=== PATIENT | female | born 1950 | race African-American/Black ===

== ENCOUNTER 2020-05-12 15:25 | Inpatient (IN) | payer OTHER ==
[~2020-05-12] VITALS: Ht 162.6 cm; Wt 67.6 kg
--- NOTE | 2020-05-12 15:58 | Emergency Room Report ---
History of Present Illness General Chief Complaint: General Complaint Source: Patient Present Illness HPI Patient is a 69-year-old female past medical history of uterine cancer, diabetes and hypertension who presents to the ER complaining of left lower leg pain and swelling. She cannot clearly explain when it started. Patient went to her oncologist who referred her to the emergency room. Patient denies any specific chest pain or shortness of breath but states that she has pain all over. She denies any fever or chills. Allergies: Coded Allergies: IBUPROFEN (Verified Allergy, Unknown, 05/12/20) COVID-19 Screening Contact w/high risk pt: No Experienced COVID-19 symptoms?: No COVID-19 Testing performed MEDICAL VOUCHER CLERK: No Patient History Reviewed Nursing Documentation: PMH: Agreed; PSxH: Agreed Nursing Documentation-PMH Past Medical History: No History, Except For Hx Hypertension: Yes Hx Diabetes: Yes Review of Systems All Other Systems: negative except mentioned in HPI Physical Exam Vital Signs Date Time Temp Pulse Resp B/P (MAP) Pulse Ox O2 Delivery O2 Flow Rate FiO2 05/12/20 15:35 97.3 108 17 112/80 (91) 96 Room Air Sp02 EP Interpretation: reviewed, normal General Appearance: no apparent distress, alert, non-toxic Head: normocephalic, atraumatic Eyes: bilateral eye normal inspection, bilateral eye PERRL ENT: hearing grossly normal, normal pharynx, no angioedema, normal voice Neck: full range of motion, supple/symm/no masses Respiratory: other - Mildly tachypneic Cardiovascular #1: regular rate, rhythm Gastrointestinal: non tender, soft Rectal: deferred Musculoskeletal: other - Left lower extremity diffuse swelling and tenderness to palpation Neurologic: safety investigator/cause analyst III-XII nml as tested Psychiatric: no suicidal/homicidal ideation Skin: pallor Lymphatic: no adenopathy Procedures Critical Care Time Critical Care Time Total critical care time: Approximately 35 minutes. Due to a high probability of clinically significant, life threatening deterioration, the patient required my highest level of preparedness to intervene emergently and I personally spent this critical care time directly and personally managing the patient. This critical care time included obtaining a history; examining the patient; pulse oximetry; ordering and review of studies; arranging urgent treatment with development of a management plan; evaluation of patient's response to treatment; frequent reassessment; and, discussions with other providers.This critical care time was performed to assess and manage the high probability of imminent, life- threatening deterioration that could result in multi-organ failure. It was exclusive of separately billable procedures and treating other patients and teaching time. Please see MDM section and the rest of the note for further information on patient assessment and treatment. Medical Decision Making Diagnostic Impression: Primary Impression: Pulmonary embolism Additional Impressions: DVT (deep venous thrombosis) Pneumonia ER Course Patient initially found to have DVT of the left lower extremity. Patient's creatinine was normal and was started on Lovenox. I sent the patient for CTA to rule out PE. Patient does have a right pulmonary embolus with mild right heart strain. Patient has leukocytosis and CT demonstrates evidence for pneumonia. Patient cultured and started on vancomycin as well as cefepime. I spoke with the patient's doctor who is requesting Dr. Guzman for admission. I spoke with DR. Guzman for admission. Laboratory Tests Test 05/12/20 15:55 05/12/20 18:00 05/12/20 18:15 White Blood Count 13.7 K/UL (4.8-10.8) H Red Blood Count 2.96 M/UL (4.20-5.40) L Hemoglobin 7.1 G/DL (12.0-16.0) L Hematocrit 24.4 % (37.0-47.0) L Mean Corpuscular Volume 83 FL (80-99) Mean Corpuscular Hemoglobin 24.0 PG (27.0-31.0) L Mean Corpuscular Hemoglobin Concent 29.1 G/DL (32.0-36.0) L Red Cell Distribution Width 19.2 % (11.6-14.8) H Platelet Count 227 K/UL (150-450) Mean Platelet Volume 8.0 FL (6.5-10.1) Neutrophils (%) (Auto) % (45.0-75.0) Lymphocytes (%) (Auto) % (20.0-45.0) Monocytes (%) (Auto) % (1.0-10.0) Eosinophils (%) (Auto) % (0.0-3.0) Basophils (%) (Auto) % (0.0-2.0) Neutrophils % (Manual) Pending Lymphocytes % (Manual) Pending Platelet Estimate Pending Platelet Morphology Pending Prothrombin Time 16.8 SEC (9.30-11.50) H Prothrombin Time INR 1.6 (0.9-1.1) H Activated Partial Thromboplast Time 34 SEC (23-33) H Sodium Level 137 MMOL/L (136-145) Potassium Level 3.7 MMOL/L (3.5-5.1) Chloride Level 101 MMOL/L (98-107) Carbon Dioxide Level 25 MMOL/L (21-32) Anion Gap 11 mmol/L (5-15) Blood Urea Nitrogen 12 mg/dL (7-18) Creatinine 0.7 MG/DL (0.55-1.30) Estimated Glomerular Filtration Rate > 60 mL/min (>60) Glucose Level 130 MG/DL (74-106) H Calcium Level 8.5 MG/DL (8.5-10.1) Magnesium Level 2.0 MG/DL (1.8-2.4) Total Bilirubin 0.7 MG/DL (0.2-1.0) Aspartate Amino Transferase (AST) 32 U/L (15-37) Alanine Aminotransferase (ALT) 14 U/L (12-78) Alkaline Phosphatase 166 U/L (46-116) H Troponin I 0.000 ng/mL (0.000-0.056) Pro-B-Type Natriuretic Peptide 2874 pg/mL (0-125) H Total Protein 8.0 G/DL (6.4-8.2) Albumin 1.0 G/DL (3.4-5.0) L Globulin 7.0 g/dL Albumin/Globulin Ratio 0.1 (1.0-2.7) L Lactic Acid Level 2.10 mmol/L (0.4-2.0) H Urine Color Pending Urine Appearance Pending Urine pH Pending Urine Specific Rigby Pending Urine Protein Pending Urine Glucose (UA) Pending Urine Ketones Pending Urine Blood Pending Urine Nitrite Pending Urine Bilirubin Pending Urine Urobilinogen Pending Urine Leukocyte Esterase Pending Microbiology Date/Time Source Procedure Growth Status 05/12/20 17:10 Nasopharynx SARS-CoV-2 RdRp Gene Assay - Final Complete EKG Diagnostic Results Troponin ordered: Yes When was troponin ordered?: May 12, 2020 EKG Time: 16:53 EP Interpretation: Rosemary Bridges MD Rate: normal - 95 bpm Rhythm: NSR ST Segments: no acute changes ASA given to the pt in ED: No Rhythm Strip Diag. Results Rhythm Strip Time: 17:01 EP Interpretation: yes - Rosemary Bridges MD Rate: 95 bpm Rhythm: NSR, no PVC's, no ectopy Chest X-Ray Diagnostic Results Chest X-Ray Diagnostic Results : Chest X-Ray Ordered: Yes # of Views/Limited/Complete: 1 View Indication: Shortness of Breath EP Interpretation: Yes Interpretation: no consolidation, no effusion, no pneumothorax, other - Cardiomegaly Impression: Other - Cardiomegaly Electronically Signed by: Rosemary Bridges MD Last Vital Signs Date Time Temp Pulse Resp B/P (MAP) Pulse Ox O2 Delivery O2 Flow Rate FiO2 05/12/20 15:35 97.3 108 17 112/80 (91) 96 Room Air Disposition: ADMITTED INPATIENT - Telemetry Condition: Critical Physician Consult: Dr. Parsons from insurance agreed to have patient admitted here. Additional Instructions: Please note that this report is being documented using [employer] technology. This can lead to erroneous entry secondary to incorrect interpretation by the dictating instrument. Sepsis Event Note Evaluation Current Stage of Sepsis: Sepsis Possible Source: Pulmonary Focused Exam Allergies: Coded Allergies: IBUPROFEN (Verified Allergy, Unknown, 05/12/20) Date Exam Occurred: May 12, 2020 Time Exam Occurred: 19:54 Laboratory Studies Laboratory Tests Test 05/12/20 15:55 05/12/20 18:00 05/12/20 18:15 White Blood Count 13.7 K/UL (4.8-10.8) H Red Blood Count 2.96 M/UL (4.20-5.40) L Hemoglobin 7.1 G/DL (12.0-16.0) L Hematocrit 24.4 % (37.0-47.0) L Mean Corpuscular Volume 83 FL (80-99) Mean Corpuscular Hemoglobin 24.0 PG (27.0-31.0) L Mean Corpuscular Hemoglobin Concent 29.1 G/DL (32.0-36.0) L Red Cell Distribution Width 19.2 % (11.6-14.8) H Platelet Count 227 K/UL (150-450) Mean Platelet Volume 8.0 FL (6.5-10.1) Neutrophils (%) (Auto) % (45.0-75.0) Lymphocytes (%) (Auto) % (20.0-45.0) Monocytes (%) (Auto) % (1.0-10.0) Eosinophils (%) (Auto) % (0.0-3.0) Basophils (%) (Auto) % (0.0-2.0) Neutrophils % (Manual) Pending Lymphocytes % (Manual) Pending Platelet Estimate Pending Platelet Morphology Pending Prothrombin Time 16.8 SEC (9.30-11.50) H Prothromb Time International Ratio 1.6 (0.9-1.1) H Activated Partial Thromboplast Time 34 SEC (23-33) H Sodium Level 137 MMOL/L (136-145) Potassium Level 3.7 MMOL/L (3.5-5.1) Chloride Level 101 MMOL/L (98-107) Carbon Dioxide Level 25 MMOL/L (21-32) Anion Gap 11 mmol/L (5-15) Blood Urea Nitrogen 12 mg/dL (7-18) Creatinine 0.7 MG/DL (0.55-1.30) Estimat Glomerular Filtration Rate > 60 mL/min (>60) Glucose Level 130 MG/DL (74-106) H Calcium Level 8.5 MG/DL (8.5-10.1) Magnesium Level 2.0 MG/DL (1.8-2.4) Total Bilirubin 0.7 MG/DL (0.2-1.0) Aspartate Amino Transf (AST/SGOT) 32 U/L (15-37) Alanine Aminotransferase (ALT/SGPT) 14 U/L (12-78) Alkaline Phosphatase 166 U/L (46-116) H Troponin I 0.000 ng/mL (0.000-0.056) Pro-B-Type Natriuretic Peptide 2874 pg/mL (0-125) H Total Protein 8.0 G/DL (6.4-8.2) Albumin 1.0 G/DL (3.4-5.0) L Globulin 7.0 g/dL Albumin/Globulin Ratio 0.1 (1.0-2.7) L Lactic Acid Level 2.10 mmol/L (0.4-2.0) H Urine Color Pending Urine Appearance Pending Urine pH Pending Urine Specific Rigby Pending Urine Protein Pending Urine Glucose (UA) Pending Urine Ketones Pending Urine Blood Pending Urine Nitrite Pending Urine Bilirubin Pending Urine Urobilinogen Pending Urine Leukocyte Esterase Pending Vital Signs Last 24 Hour Vital Signs Date Time Temp Pulse Resp B/P (MAP) Pulse Ox O2 Delivery O2 Flow Rate FiO2 05/12/20 19:24 97.3 05/12/20 19:22 97.3 103 17 96/75 97 Room Air 05/12/20 16:29 108 17 Room Air 05/12/20 16:29 97.3 108 17 112/80 96 Room Air 05/12/20 15:35 97.3 108 17 112/80 (91) 96 Room Air Respiratory Exam: Rhonchi Cardiovascular Exam: RRR Capillary Refill: Less Than 2 Seconds Peripheral Pulse: Rosemary Regan M.D. May 12, 2020 15:58
[2020-05-12 16:22] LABS: INR 1.6 (0.9-1.1)
[2020-05-12 16:24] LABS: HEMATOCRIT 24.4 % (37.0-47.0); HEMOGLOBIN 7.1 G/DL (12.0-16.0); MEAN CORPUSCULAR VOLUME 83 FL (80-99); PLATELET COUNT 227 K/UL (150-450); RED BLOOD COUNT 2.96 M/UL (4.20-5.40); RED CELL DISTRIBUTION WIDTH 19.2 % (11.6-14.8); WHITE BLOOD COUNT 13.7 K/UL (4.8-10.8)
[2020-05-12 16:28] LABS: ANION GAP 11 mmol/L (5-15); BLOOD UREA NITROGEN 12 mg/dL (7-18); CALCIUM 8.5 MG/DL (8.5-10.1); CARBON DIOXIDE 25 MMOL/L (21-32); CHLORIDE 101 MMOL/L (98-107); CREATININE 0.7 MG/DL (0.55-1.30); POTASSIUM 3.7 MMOL/L (3.5-5.1); SODIUM 137 MMOL/L (136-145)
[2020-05-12 16:29] VITALS: BP 112/80
--- NOTE | 2020-05-12 16:31 | NUR ---
ED Nurse Note:pt. c/o left leg swelling and pain, possible DVT, pt. is A/Ox3, venous dupler study was done
[2020-05-12 16:32] LABS: ALANINE AMINOTRANSFERASE 14 U/L (12-78); ALBUMIN/GLOBULIN RATIO 0.1 (1.0-2.7); ALKALINE PHOSPHATASE 166 U/L (46-116); ASPARTATE AMINO TRANSFERASE 32 U/L (15-37); BILIRUBIN,TOTAL 0.7 MG/DL (0.2-1.0)
[2020-05-12] MEDS ORDERED: Enoxaparin 60mg Inj SUBQ ONE (16:45)
--- NOTE | 2020-05-12 16:53 | NUR ---
ED Nurse Note: Jenn daughter [phone]
--- NOTE | 2020-05-12 17:11 | Diagnostic Imaging Report ---
Indication: Shortness of breath Technique: One view of the chest Comparison: none Findings: The heart is enlarged. Lungs and pleural spaces are clear. Surgical clip is seen in the left axilla Impression: Cardiomegaly. No acute process
--- NOTE | 2020-05-12 17:11 | Diagnostic Imaging Report ---
Indication: Bilateral leg pain Technique: Grayscale and duplex images of the bilateral lower extremity veins Comparison: none Findings: On the left, grayscale and duplex images demonstrate thrombus within the common femoral and femoral veins, resulting in absence of flow within the segments and resultant noncompressibility. The upstream femoral vein and popliteal vein as well as the calf veins are patent. There is subcutaneous edema of the left calf. On the right, grayscale and duplex images demonstrate no evidence of intraluminal thrombus. Normal phasic Doppler waveforms. Normal compressibility. Impression: Positive for left femoral and common femoral deep venous thrombosis Emergency room physician already aware
[2020-05-12] MEDS ORDERED: Omnipaque 350 100ml vial INJ PRN (17:15)
--- NOTE | 2020-05-12 18:09 | Diagnostic Imaging Report ---
EXAM: CT Angiography Chest With Intravenous Contrast CLINICAL HISTORY: SOB TECHNIQUE: Axial computed tomographic angiography images of the chest with intravenous contrast. CTDI is 63.2 mGy and DLP is 168.40 mGy-cm. One or more of the following dose reduction techniques were used: automated exposure control, adjustment of the mA and/or kV according to patient size, use of iterative reconstruction technique. MIP reconstructed images were created and reviewed. COMPARISON: No relevant prior studies available. FINDINGS: Pulmonary arteries: Right central, segmental and subsegmental pulmonary emboli. Aorta: No acute findings. No thoracic aortic aneurysm. Lungs: Scattered ground glass opacities versus mosaic attenuation of the lungs which may represent an infectious process versus air trapping from small airways disease. Pleural space: Unremarkable. No significant effusion. No pneumothorax. Heart: Borderline right heart strain. Coronary artery calcifications. No significant pericardial effusion. Bones/joints: No acute fracture. No dislocation. Soft tissues: Unremarkable. Lymph nodes: See below. Intraperitoneal space: Mild ascites seen within the upper abdomen enlarged lymph nodes within the upper abdomen, which are nonspecific. IMPRESSION: 1. Right central, segmental and subsegmental pulmonary emboli. 2. Borderline right heart strain. 3. Scattered ground glass opacities versus mosaic attenuation of the lungs which may represent an infectious process versus air trapping from small airways disease. 4. Mild ascites seen within the upper abdomen enlarged lymph nodes within the upper abdomen, which are nonspecific. <MYCVCSECTION> Communications: 05/12/20 18:13 Verify Receipt Verified receipt with Dr. Winters on 05/12 18:13 (-08:00)
[2020-05-12] MEDS ORDERED: Cefepime HCl 2 GM in D5W 55 ML IVPB ONE (18:30)
[2020-05-12] MEDS ORDERED: Azithromycin 500 MG in NS 275 ML IV ONE (18:30)
--- NOTE | 2020-05-12 18:43 | NUR ---
CONTACT INFO, patient's daughter, queta [phone]
[2020-05-12] MEDS ORDERED: fentaNYL 100 mcg/2 mL IV ONE (19:15)
[2020-05-12 19:22] VITALS: BP 96/75
--- NOTE | 2020-05-12 19:23 | NUR ---
HAND-OFF: Report given to Ayaka.
[2020-05-12 19:43] LABS: APPEARANCE,URINE CLOUDY; BILIRUBIN, URINE 1+ (NEGATIVE); GLUCOSE, URINE (UA) NEGATIVE (NEGATIVE); KETONES,URINE NEGATIVE (NEGATIVE); NITRITE,URINE NEGATIVE (NEGATIVE); PH,URINE 6 (4.5-8.0); PROTEIN,URINE 3+ (NEGATIVE); UROBILINOGEN,URINE 8 MG/DL (0.0-1.0)
[2020-05-12 19:56] LABS: COLOR,URINE YELLOW; LEUKOCYTE ESTERASE ,URINE TRACE (NEGATIVE)
--- NOTE | 2020-05-12 20:02 | NUR ---
ED Nurse Note: lactic reflex collected; sent down to lab.
[2020-05-12] MEDS ORDERED: Eliquis 5mg tablet ORAL SCH (20:45)
--- NOTE | 2020-05-12 21:30 | NUR ---
TRANSFER TO FLOOR: Patient transferred to sdu over flow 246j as ordered, per marcia gibbons. Report given to sharon martinez. patient stable for transport. transferred to unit via gurney with 2 rn. belongings and admission packet sent with patient. endorsed infusing blood transfusion.
--- NOTE | 2020-05-12 21:50 | NUR ---
NURSE HAND-OFF REPORT: Important Events on Shift:[] Patient Status: [] Diet: [] Pending Orders: [] Pending Results/Labs:[] Pending MD notification:[] Latest Vital Signs: Temperature 97.3 , Pulse 91 , B/P 103 /71 , Respiratory Rate 19 , O2 SAT 99 , Room Air, O2 Flow Rate . Vital Sign Comment: [] EKG Rhythm: Sinus Rhythm Rhythm change?: N MD Notified?: - MD Response: Latest Florian Fall Score: 20 Fall Risk: Low Risk Safety Measures: Call light Within Reach, Bed Alarm Zone 1, Side Rails Side Rails x2, Bed position Low and Locked. Fall Precautions: Yellow Gown Report given to [].
--- NOTE | 2020-05-12 21:50 | NUR ---
NURSE NOTES: Received report from NAOMY Bhatti. Pt alert oriented x 4, afebrile, follows commands, and no respiratory distress noted. On Room air saturating at 100 percent. with Right AC 20G Iv line intact, asymptomatic and patent. Bod assessment done and noted skin changes. On going PRBC x 1 unit. No s/sx of adverse reaction noted. Call light within reach. Bed rails are up and wheels are locked. HOB Elevated. Continue to monitor the patient.
[2020-05-12] MEDS ORDERED: Piperacillin/Tazobactam 3.375 GM in NS 110 ML IVPB SCH (22:00)
[2020-05-12] MEDS: HYDROcodone/Acetamin 10/325 tab ORAL PRN (22:58)
--- NOTE | 2020-05-12 23:35 | NUR ---
NURSE NOTES: Left a voice mail to Dr Hardy regarding patient's request for suppository and stronger pain medication. awaiting for response. Provided reposition, pillow support and reassurance to patient. Pain scale is 7/10 from 9/10 general body pain.
[2020-05-12] MEDS: Pantoprazole Inj IVP SCH (23:46)
[2020-05-13] VITALS: BP 132/82
--- NOTE | 2020-05-13 00:30 | NUR ---
NURSE NOTES: Pt went to sleep and no complaints of pain. will continue to monitor the patient
[2020-05-13] MEDS ORDERED: Vancomycin 1.25gm/250ml Premix IVPB ONE (02:00)
[2020-05-13 04:00] VITALS: BP 138/86
[2020-05-13] MEDS: HYDROcodone/Acetamin 10/325 tab ORAL PRN ×3 (04:32→17:22)
[2020-05-13] MEDS ORDERED: Eliquis 5mg tablet ORAL SCH (05:00)
[2020-05-13 05:07] LABS: HEMATOCRIT 31.2 % (37.0-47.0); HEMOGLOBIN 8.8 G/DL (12.0-16.0); MEAN CORPUSCULAR VOLUME 89 FL (80-99); PLATELET COUNT 255 K/UL (150-450); RED BLOOD COUNT 3.51 M/UL (4.20-5.40); RED CELL DISTRIBUTION WIDTH 18.5 % (11.6-14.8); WHITE BLOOD COUNT 13.2 K/UL (4.8-10.8)
[2020-05-13 05:34] LABS: ALBUMIN/GLOBULIN RATIO 0.1 (1.0-2.7); CALCIUM 8.2 MG/DL (8.5-10.1); CREATININE 1.1 MG/DL (0.55-1.30); POTASSIUM 3.6 MMOL/L (3.5-5.1)
[2020-05-13] MEDS: Piperacillin/Tazobactam 3.375 GM in NS 110 ML IVPB SCH ×3 (05:39→20:53)
--- NOTE | 2020-05-13 06:22 | NUR ---
NURSE NOTES: Pt asleep in bed. No discomfort like pain complained. Pt saturating 100% in Room air. Continue to monitor
--- NOTE | 2020-05-13 06:48 | Consultation ---
History of Present Illness General Chief Complaint: General Complaint Present Illness Allergies: Coded Allergies: IBUPROFEN (Verified Allergy, Unknown, 05/12/20) Medication History No Active Prescriptions or Reported Meds Patient History Healthcare decision maker N Resuscitation status Advanced Directive on File Physical Exam Last 24 Hour Vital Signs Date Time Temp Pulse Resp B/P (MAP) Pulse Ox O2 Delivery O2 Flow Rate FiO2 05/13/20 04:00 86 05/13/20 04:00 98.2 84 18 138/86 (103) 05/13/20 04:00 Room Air 05/13/20 00:00 97.5 87 18 132/82 (99) 05/13/20 00:00 Room Air 05/12/20 23:27 105 05/12/20 22:12 Room Air 05/12/20 22:09 91 05/12/20 21:30 97.3 94 19 103/71 99 Room Air 05/12/20 19:24 97.3 05/12/20 19:22 97.3 103 17 96/75 97 Room Air 05/12/20 16:29 108 17 Room Air 05/12/20 16:29 97.3 108 17 112/80 96 Room Air 05/12/20 15:35 97.3 108 17 112/80 (91) 96 Room Air Intake and Output 05/12/20 05/13/20 19:00 07:00 Intake Total 240 ml 919.00 ml Balance 240 ml 919.00 ml Intake Oral 240 ml 200 ml IV Total 719.00 ml Laboratory Tests Test 05/12/20 15:55 05/12/20 18:00 05/12/20 18:15 05/12/20 20:00 White Blood Count 13.7 K/UL (4.8-10.8) H Red Blood Count 2.96 M/UL (4.20-5.40) L Hemoglobin 7.1 G/DL (12.0-16.0) L Hematocrit 24.4 % (37.0-47.0) L Mean Corpuscular Volume 83 FL (80-99) Mean Corpuscular Hemoglobin 24.0 PG (27.0-31.0) L Mean Corpuscular Hemoglobin Concent 29.1 G/DL (32.0-36.0) L Red Cell Distribution Width 19.2 % (11.6-14.8) H Platelet Count 227 K/UL (150-450) Mean Platelet Volume 8.0 FL (6.5-10.1) Neutrophils (%) (Auto) % (45.0-75.0) Lymphocytes (%) (Auto) % (20.0-45.0) Monocytes (%) (Auto) % (1.0-10.0) Eosinophils (%) (Auto) % (0.0-3.0) Basophils (%) (Auto) % (0.0-2.0) Differential Total Cells Counted 100 Neutrophils % (Manual) 86 % (45-75) H Lymphocytes % (Manual) 7 % (20-45) L Monocytes % (Manual) 7 % (1-10) Eosinophils % (Manual) 0 % (0-3) Basophils % (Manual) 0 % (0-2) Band Neutrophils 0 % (0-8) Platelet Estimate Adequate Platelet Morphology Normal Hypochromasia 2+ Anisocytosis 1+ Prothrombin Time 16.8 SEC (9.30-11.50) H Prothromb Time International Ratio 1.6 (0.9-1.1) H Activated Partial Thromboplast Time 34 SEC (23-33) H Sodium Level 137 MMOL/L (136-145) Potassium Level 3.7 MMOL/L (3.5-5.1) Chloride Level 101 MMOL/L (98-107) Carbon Dioxide Level 25 MMOL/L (21-32) Anion Gap 11 mmol/L (5-15) Blood Urea Nitrogen 12 mg/dL (7-18) Creatinine 0.7 MG/DL (0.55-1.30) Estimat Glomerular Filtration Rate > 60 mL/min (>60) Glucose Level 130 MG/DL (74-106) H Calcium Level 8.5 MG/DL (8.5-10.1) Magnesium Level 2.0 MG/DL (1.8-2.4) Total Bilirubin 0.7 MG/DL (0.2-1.0) Aspartate Amino Transf (AST/SGOT) 32 U/L (15-37) Alanine Aminotransferase (ALT/SGPT) 14 U/L (12-78) Alkaline Phosphatase 166 U/L (46-116) H Troponin I 0.000 ng/mL (0.000-0.056) Pro-B-Type Natriuretic Peptide 2874 pg/mL (0-125) H Total Protein 8.0 G/DL (6.4-8.2) Albumin 1.0 G/DL (3.4-5.0) L Globulin 7.0 g/dL Albumin/Globulin Ratio 0.1 (1.0-2.7) L Lactic Acid Level 2.10 mmol/L (0.4-2.0) H 2.20 mmol/L (0.66-2.22) Urine Color Yellow Urine Appearance Cloudy Urine pH 6 (4.5-8.0) Urine Specific [place] 1.010 (1.005-1.035) Urine Protein 3+ (NEGATIVE) H Urine Glucose (UA) Negative (NEGATIVE) Urine Ketones Negative (NEGATIVE) Urine Blood 5+ (NEGATIVE) H Urine Nitrite Negative (NEGATIVE) Urine Bilirubin 1+ (NEGATIVE) H Urine Ictotest Negative (NEGATIVE) Urine Urobilinogen 8 MG/DL (0.0-1.0) H Urine Leukocyte Esterase Trace (NEGATIVE) H Urine RBC 30-40 /HPF (0 - 2) H Urine WBC 2-4 /HPF (0 - 2) Urine Squamous Epithelial Cells Few /LPF (NONE/OCC) Urine Bacteria Few /HPF (NONE) Test 05/13/20 03:55 White Blood Count 13.2 K/UL (4.8-10.8) H Red Blood Count 3.51 M/UL (4.20-5.40) L Hemoglobin 8.8 G/DL (12.0-16.0) L Hematocrit 31.2 % (37.0-47.0) L Mean Corpuscular Volume 89 FL (80-99) Mean Corpuscular Hemoglobin 25.2 PG (27.0-31.0) L Mean Corpuscular Hemoglobin Concent 28.4 G/DL (32.0-36.0) L Red Cell Distribution Width 18.5 % (11.6-14.8) H Platelet Count 255 K/UL (150-450) Mean Platelet Volume 8.5 FL (6.5-10.1) Neutrophils (%) (Auto) % (45.0-75.0) Lymphocytes (%) (Auto) % (20.0-45.0) Monocytes (%) (Auto) % (1.0-10.0) Eosinophils (%) (Auto) % (0.0-3.0) Basophils (%) (Auto) % (0.0-2.0) Sodium Level 137 MMOL/L (136-145) Potassium Level 3.6 MMOL/L (3.5-5.1) Chloride Level 100 MMOL/L (98-107) Carbon Dioxide Level 27 MMOL/L (21-32) Anion Gap 10 mmol/L (5-15) Blood Urea Nitrogen 13 mg/dL (7-18) Creatinine 1.1 MG/DL (0.55-1.30) # Estimat Glomerular Filtration Rate 59.8 mL/min (>60) Glucose Level 169 MG/DL (74-106) H Lactic Acid Level 3.00 mmol/L (0.4-2.0) H Calcium Level 8.2 MG/DL (8.5-10.1) L Total Bilirubin 1.0 MG/DL (0.2-1.0) Aspartate Amino Transf (AST/SGOT) 26 U/L (15-37) Alanine Aminotransferase (ALT/SGPT) 7 U/L (12-78) L Alkaline Phosphatase 160 U/L (46-116) H Total Protein 7.8 G/DL (6.4-8.2) Albumin 1.0 G/DL (3.4-5.0) L Globulin 6.8 g/dL Albumin/Globulin Ratio 0.1 (1.0-2.7) L Microbiology Date/Time Source Procedure Growth Status 05/12/20 17:10 Nasopharynx SARS-CoV-2 RdRp Gene Assay - Final Complete Height (Feet): 5 Height (Inches): 4.00 Weight (Pounds): 149 Medications Current Medications Medications (Trade) Dose Ordered Sig/Rhonda Route PRN Reason Start Time Stop Time Status Last Admin Dose Admin Acetaminophen (Tylenol) 500 mg Q4H PRN ORAL Mild Pain (Pain Scale 1-3) 05/12/20 20:45 06/11/20 20:44 Acetaminophen/ Hydrocodone Bitart ([place] 10/325) 1 tab Q4H PRN ORAL For Pain 4-10 05/12/20 20:45 05/19/20 20:44 05/13/20 04:32 Apixaban (Eliquis) 5 mg BID ORAL 05/20/20 09:00 08/18/20 08:59 Apixaban (Eliquis) 10 mg BID ORAL 05/13/20 09:00 05/19/20 19:00 Iohexol (Omnipaque 350 100ml) 100 ml NOW PRN INJ Radiology Procedure 05/12/20 17:15 05/14/20 17:14 Ondansetron HCl (Zofran) 4 mg Q6H PRN IVP Nausea & Vomiting 05/12/20 20:45 06/11/20 20:44 Pantoprazole (Protonix) 40 mg DAILY IVP 05/12/20 22:00 06/11/20 21:59 05/12/20 23:46 Piperacillin Sod/ Tazobactam Sod 3.375 gm/Sodium Chloride 110 ml @ 27.5 mls/hr EVERY 8 HOURS IVPB 05/13/20 06:00 05/18/20 05:59 05/13/20 05:39 Sodium Chloride 1,000 ml @ 75 mls/hr [id number] IV 05/12/20 22:00 06/11/20 21:59 05/12/20 23:45 Vancomycin HCl ([facility] pharmacy to dose) 1 ea DAILY PRN MISC Per rx protocol 05/12/20 20:45 06/11/20 20:44 Vancomycin HCl 750 mg/Sodium Chloride 275 ml @ 183.333 mls/hr Q12HR@0200,1400 IVPB 05/13/20 14:00 05/18/20 13:59 Assessment/Plan Assessment/Plan: Oncology Consultation ALEX MD: Pankaj Jonas RFC: Endometrial Cancer on chemo DOS 05/13/2020 HPI Patient is a 69-year-old female past medical history of uterine cancer, diabetes and hypertension who presents to the ER complaining of left lower leg pain and swelling. She cannot clearly explain when it started. Patient went to her oncologist Dr. Claude Greenberg who referred her to the emergency room. Patient denies any specific chest pain or shortness of breath but states that she has pain all over. She denies any fever or chills. Has a hx of endom ca onchemo. Coded Allergies: IBUPROFEN (Verified Allergy, Unknown, 05/12/20) COVID-19 Screening Contact w/high risk pt: No Experienced COVID-19 symptoms?: No COVID-19 Testing performed IMAGERY INTELLIGENCE: No Patient History Reviewed Nursing Documentation: PMH: Agreed; PSxH: Agreed Nursing Documentation-PMH Past Medical History: No History, Except For Hx Hypertension: Yes Hx Diabetes: Yes Review of Systems All Other Systems: negative except mentioned in HPI Physical Exam Vitals reviewed, normal General: no apparent distress, alert, non-toxicL HEENT: hearing grossly normal, normal pharynx, no angioedema, normal voice Neck: full range of motion, supple/symm/no masses Respiratory: other - Mildly tachypneic Cardiovascular: regular rate, rhythm Gastrointestinal: non tender, soft Rectal: deferred Musculoskeletal: other - Left lower extremity diffuse swelling and tenderness to palpation Neurologic: apartment maintenance III-XII nml as tested Psychiatric: no suicidal/homicidal ideation Lymphatic: no adenopathy Labs: reviewed Imaging noted CTA 1. Right central, segmental and subsegmental pulmonary emboli. 2. Borderline right heart strain. 3. Scattered ground glass opacities versus mosaic attenuation of the lungs which may represent an infectious process versus air trapping from small airways disease. 05/13 duplex Impression: Positive for left femoral and common femoral deep venous thrombosis Emergency room physician already aware Assessment and recs # Pulmonary embolism, Right central, segmental and subsegmental pulmonary emboli. with right heart strain --> has been started on anticoagulation eliquis --> monitor h/h closely --> to require anticoag as long as has malignacy # DVT (deep venous thrombosis) left fem and com deep vein --> started on eliquis and to continue --> continue as above for as long as has malign # Endometrial cancer on KEYTRUDA --> to obtain records from office --> does not appear to have had chemo yet # Anemia of chronic disease --> anemia panel has been ordered --> r/o gi beed # Leukocytosis due to Pneumonia --> on abx per pcp --> ABX zosyn and vanc # Dvt ppx eliquis Appreciate consultation and dw Armando Dockery MD May 13, 2020 06:48
--- NOTE | 2020-05-13 07:10 | NUR ---
NURSE HAND-OFF REPORT: Important Events on Shift: stable/ new admit Patient Status: stable Diet: regular diet Pending Orders: n Pending Results/Labs:n Pending MD notification:n Latest Vital Signs: Temperature 98.2 , Pulse 86 , B/P 138 /86 , Respiratory Rate 18 , O2 SAT 99 , Room Air, O2 Flow Rate . Vital Sign Comment: n EKG Rhythm: Sinus Rhythm Rhythm change?: N MD Notified?: N - MD Response: Latest Florian Fall Score: 20 Fall Risk: Low Risk Safety Measures: Call light Within Reach, Bed Alarm Zone 1, Side Rails Side Rails x2, Bed position Low and Locked. Fall Precautions: Yellow Gown Report given to NAOMY Montez. Endorsed to ff up any roders for PE/DVT
--- NOTE | 2020-05-13 07:12 | NUR ---
NURSE NOTES: Received report from NAOMY MOJICA. Patient in bed resting, no active s/s cardiac, respiratory distress noticed at this time. Patient AOX4, anxious, SR with HR 86. Patient on room air, O2 sat 97%. Patient on regular diet. Non pitting edema on left leg, patient c/o 3/10 pain, patient denies chest pain at this time. Educated not to ambulate without staffs. Per patient unable to recall home meds. IV on right AC 20G, asymptomatic, patent, intact. IVF NS running @ 75ml/h. Endorsed 1 unit of PRBC given last night. Bed in lowest position, side rails upx2, call light within reach, bed alarm on, Will continue to monitor. Endorsed MD aware of CTA result, DVT result. No new order received at this time, will continue to follow up.
[2020-05-13 08:00] VITALS: BP 149/91
--- NOTE | 2020-05-13 08:03 | NUR ---
NURSE NOTES: Patient educated and informed regarding DVT present. Patient refuse to follow RN recommendation. Patient keeps yelling to go to bathroom.
[2020-05-13] MEDS: Eliquis 5mg tablet ORAL SCH ×2 (09:13→17:22)
[2020-05-13] MEDS: Pantoprazole Inj IVP SCH (09:13)
--- NOTE | 2020-05-13 10:00 | NUR ---
NURSE NOTES: Patient provided bedpan, refused to remove at this time, Will educate and try to remove.
[2020-05-13 12:00] VITALS: BP 145/91
--- NOTE | 2020-05-13 13:27 | NUR ---
NURSE NOTES: Dr. Lira made aware of scant amount of blood from vagina (patient hx uterine cancer). No new order received at this time. Will continue to monitor.
--- NOTE | 2020-05-13 14:09 | NUR ---
NURSE NOTES: Per Dr. Lira , no new order at this time, Will continue to monitor.
[2020-05-13] MEDS: Vancomycin 750mg/NS 275ml IVPB SCH ×2 (15:33)
[2020-05-13 16:00] VITALS: BP 145/97
--- NOTE | 2020-05-13 16:59 | History and Physical Report ---
DATE OF ADMISSION: 05/12/2020 CHIEF COMPLAINT: DVT. HISTORY OF PRESENT ILLNESS: The patient is a 69-year-old female. She has history of uterine cancer, diabetes, hypertension presented with complaints of lower extremity edema. Upon evaluation in the emergency room, she was diagnosed with DVT. A CT pulmonary angio also showed small pulmonary embolism. The patient has been started on anticoagulation, is now admitted for further evaluation and care. She is a poor historian. She does not recall her medications. She denies any fevers or chills. She has had no cough. PAST MEDICAL HISTORY: As above. PAST SURGICAL HISTORY: None. CURRENT MEDICATIONS: Reconciled and reviewed. ALLERGIES: None. FAMILY HISTORY: None. SOCIAL HISTORY: There is no known history of tobacco, ethanol, or drugs. REVIEW OF SYSTEMS: GENERAL: No fevers or chills. HEENT: No headaches or visual changes. CARDIOPULMONARY: No chest pain or shortness of breath. GASTROINTESTINAL: No nausea or vomiting. GENITOURINARY: No urgency or frequency. MUSCULOSKELETAL: Positive joint pain and swelling. NEUROLOGIC: No evidence of seizures. PHYSICAL EXAMINATION: VITAL SIGNS: Temperature 98 degrees, blood pressure 107/68, pulse 80, respirations 20. GENERAL: The patient is well-developed, no apparent distress. HEART: Regular rate and rhythm. LUNGS: Clear. ABDOMEN: Soft, nontender, nondistended. EXTREMITIES: Without clubbing, cyanosis, or edema. LABORATORY DATA: Sodium 137, potassium 3.6, creatinine 1.1. Lactic acid level is 3. White count was 523[address], hemoglobin 7.1. ASSESSMENT: This is a 69-year-old female with history of diabetes, hypertension, ovarian cancer admitted with complaints of DVT and PE, as well as anemia. PLAN: Transfuse to keep hemoglobin greater than 8.5. Check stool for occult blood and iron panel. Anticoagulation with Eliquis. Monitor for bleeding. Hematology/oncology consultation. Empiric antibiotics to cover for pneumonia. Pritesh Lira M.D. DR: Sandee JOB#: [id number] CC:
[2020-05-13] MEDS ORDERED: COREG12.5 MG ORAL (18:13)
[2020-05-13] MEDS ORDERED: ACETAMINOPHEN-1 EAC2 ORAL (18:13)
[2020-05-13] MEDS ORDERED: OMEPRAZOLE40 M1 ORAL (18:13)
[2020-05-13] MEDS ORDERED: METFORMIN HCL850 M1 ORAL (18:13)
[2020-05-13] MEDS ORDERED: XANAX2 MG ORAL (18:13)
[2020-05-13] MEDS ORDERED: AMLODIPINE BESYL5 MG ORAL (18:13)
--- NOTE | 2020-05-13 18:13 | NUR ---
NURSE NOTES: Per Family member , Daughter, patient's preferred pharmacy @ [facility] [address] [facility] [address], tele : [phone]. Spoke with pharmacist Cyndy, received verbal list of med. Med reconcile updated.
--- NOTE | 2020-05-13 18:16 | Cardiology Report ---
APPROVED REPORT EKG Measurement Heart [id number] <Conclusion> Sinus rhythm with occasional premature ventricular complexes Nonspecific T wave abnormality Abnormal ECG
--- NOTE | 2020-05-13 19:09 | NUR ---
NURSE HAND-OFF REPORT: Important Events on Shift: NA Patient Status: guarded/stable Diet: Regular Pending Orders: na Pending Results/Labs:na Pending MD notification:na Latest Vital Signs: Temperature 97.4 , Pulse 101 , B/P 145 /97 , Respiratory Rate 16 , O2 SAT 96 , Room Air, O2 Flow Rate . Vital Sign Comment: stable EKG Rhythm: Sinus Tachycardia Rhythm change?: N MD Notified?: N - MD Response: Latest [place] Fall Score: 20 Fall Risk: Low Risk Safety Measures: Call light Within Reach, Bed Alarm Zone 2, Side Rails Side Rails x3, Bed position Low and Locked. Fall Precautions: Patient Fall Education Report given to NAOMY MOJICA.
--- NOTE | 2020-05-13 19:10 | NUR ---
NURSE NOTES: Received report from NAOMY Montez. Pt asleep in bed, afebrile and no respiratory distress noted. On Room air saturating at 100 percent. with Right AC 20G Iv line intact, asymptomatic and patent with NS at 75 cc/hr. Call light within reach. Bed rails are up and wheels are locked. HOB Elevated. Continue to monitor the patient.
[2020-05-13 20:00] VITALS: BP 138/88
[2020-05-13] MEDS: Acetaminophen 500mg (ES) tab ORAL PRN (20:53)
[2020-05-14] VITALS (7 sets, daily range): BP systolic 122–162; BP diastolic 65–99
[2020-05-14] MEDS: HYDROcodone/Acetamin 10/325 tab ORAL PRN ×4 (00:33→23:13)
[2020-05-14] MEDS: Vancomycin 750mg/NS 275ml IVPB SCH ×2 (01:23)
--- NOTE | 2020-05-14 02:00 | NUR ---
NURSE NOTES: Pt was assisted to use bed childress. gown and linen changed. provided partial bed bath. Pt tolerated well. Continue to monitor the patient.
[2020-05-14] MEDS: Acetaminophen 500mg (ES) tab ORAL PRN ×2 (03:35→13:33)
[2020-05-14] MEDS: Piperacillin/Tazobactam 3.375 GM in NS 110 ML IVPB SCH ×3 (05:15→21:56)
--- NOTE | 2020-05-14 06:42 | Hematology/Onc Progress Note ---
Assessment/Plan Assessment/Plan Labs: reviewed Imaging noted CTA 1. Right central, segmental and subsegmental pulmonary emboli. 2. Borderline right heart strain. 3. Scattered ground glass opacities versus mosaic attenuation of the lungs which may represent an infectious process versus air trapping from small airways disease. 05/13 duplex Impression: Positive for left femoral and common femoral deep venous thrombosis Emergency room physician already aware Assessment and recs # Pulmonary embolism, Right central, segmental and subsegmental pulmonary emboli. with right heart strain --> has been started on anticoagulation eliquis --> monitor h/h closely --> to require anticoag as long as has malignancy # DVT (deep venous thrombosis) left fem and com deep vein --> started on eliquis and to continue --> continue as above for as long as has malign # Endometrial cancer on KEYTRUDA --> to obtain records from office --> does not appear to have had chemo yet # Anemia of chronic disease --> anemia panel has been ordered --> r/o gi beed # Leukocytosis due to Pneumonia --> on abx per pcp --> ABX zosyn and vanc # Lower leg pain on norco prn # Dvt ppx eliquis Appreciate consultation and dw RN Subjective Cardiovascular: Denies: no symptoms, chest pain, edema, irregular heart rate, lightheadedness, palpitations, syncope, other Gastrointestinal/Abdominal: Denies: no symptoms, abdomen distended, abdominal pain, black stools, tarry stools, blood in stool, constipated, diarrhea, difficulty swallowing, nausea, poor appetite, poor fluid intake, rectal bleedi ng, vomiting, other Genitourinary: Denies: no symptoms, burning, discharge, frequency, flank pain, hematuria, incontinence, pain, urgency, other Neurologic/Psychiatric: Denies: no symptoms, anxiety, depressed, emotional problems, headache, numbness, paresthesia, pre-existing deficit, seizure, tingling, tremors, weakness, other Endocrine: Denies: no symptoms, excessive sweating, flushing, intolerance to cold, intolerance to heat, increased hunger, increased thirst, increased urine, unexplained weight gain, unexplained weight loss, other Hematologic/Lymphatic: Denies: no symptoms, anemia, easy bleeding, easy bruising, adenopathy, other Allergies: Coded Allergies: IBUPROFEN (Verified Allergy, Unknown, 05/12/20) Subjective 05/14 meds noted, no bleeding, labs noted, no night sweats, with pain of leg, savanah per Rn JM Objective Objective Current Medications Medications (Trade) Dose Ordered Sig/Rhonda Route PRN Reason Start Time Stop Time Status Last Admin Dose Admin Acetaminophen (Tylenol) 500 mg Q4H PRN ORAL Mild Pain (Pain Scale 1-3) 05/12/20 20:45 06/11/20 20:44 05/14/20 03:35 Acetaminophen/ Hydrocodone Bitart ([place] 10/325) 1 tab Q4H PRN ORAL For Pain 4-10 05/12/20 20:45 05/19/20 20:44 05/14/20 06:09 Apixaban (Eliquis) 5 mg BID ORAL 05/20/20 09:00 08/18/20 08:59 Apixaban (Eliquis) 10 mg BID ORAL 05/13/20 09:00 05/19/20 19:00 05/13/20 17:22 Bisacodyl (Dulcolax) 10 mg DAILYPRN PRN RECTAL Constipation 05/13/20 06:45 08/11/20 06:44 05/14/20 00:21 Iohexol (Omnipaque 350 100ml) 100 ml NOW PRN INJ Radiology Procedure 05/12/20 17:15 05/14/20 17:14 Ondansetron HCl (Zofran) 4 mg Q6H PRN IVP Nausea & Vomiting 05/12/20 20:45 06/11/20 20:44 Pantoprazole (Protonix) 40 mg DAILY IVP 05/12/20 22:00 06/11/20 21:59 05/13/20 09:13 Piperacillin Sod/ Tazobactam Sod 3.375 gm/Sodium Chloride 110 ml @ 27.5 mls/hr EVERY 8 HOURS IVPB 05/13/20 06:00 05/18/20 05:59 05/14/20 05:15 Sodium Chloride 1,000 ml @ 75 mls/hr [id number] IV 05/12/20 22:00 06/11/20 21:59 05/14/20 00:32 Vancomycin HCl (Vanco pharmacy to dose) 1 ea DAILY PRN MISC Per rx protocol 05/12/20 20:45 06/11/20 20:44 Vancomycin HCl 750 mg/Sodium Chloride 275 ml @ 183.333 mls/hr Q12HR@0200,1400 IVPB 05/13/20 14:00 05/18/20 13:59 05/14/20 01:23 Last 24 Hour Vital Signs Date Time Temp Pulse Resp B/P (MAP) Pulse Ox O2 Delivery O2 Flow Rate FiO2 05/14/20 04:00 Room Air 05/14/20 04:00 97.6 92 17 147/95 (112) 100 05/14/20 03:27 92 05/14/20 00:00 Room Air 05/14/20 00:00 97.7 91 16 150/92 (111) 96 05/13/20 23:30 95 05/13/20 20:00 Room Air 05/13/20 20:00 97.4 95 16 138/88 (105) 96 05/13/20 19:21 92 05/13/20 16:20 101 05/13/20 16:00 97.4 91 16 145/97 (113) 96 05/13/20 16:00 Room Air 05/13/20 12:00 Room Air 05/13/20 12:00 97.7 80 17 145/91 (109) 98 05/13/20 11:48 83 05/13/20 08:00 91 05/13/20 08:00 96.2 89 16 149/91 (110) 96 05/13/20 08:00 Room Air 05/13/20 04:00 86 05/13/20 04:00 98.2 84 18 138/86 (103) 05/13/20 04:00 Room Air 05/13/20 00:00 97.5 87 18 132/82 (99) 05/13/20 00:00 Room Air 05/12/20 23:27 105 05/12/20 22:12 Room Air 05/12/20 22:09 91 05/12/20 21:30 97.3 94 19 103/71 99 Room Air 05/12/20 19:24 97.3 05/12/20 19:22 97.3 103 17 96/75 97 Room Air 05/12/20 16:29 108 17 Room Air 05/12/20 16:29 97.3 108 17 112/80 96 Room Air 05/12/20 15:35 97.3 108 17 112/80 (91) 96 Room Air Intake and Output 05/13/20 05/14/20 19:00 07:00 Intake Total 1002.500 ml 1475.000 ml Balance 1002.500 ml 1475.000 ml Intake Oral 250 ml 250 ml IV Total 752.500 ml 1225.000 ml # Voids 2 # Bowel Movements 2 Labs Test 05/12/20 15:55 05/12/20 18:00 05/12/20 18:15 05/12/20 20:00 White Blood Count 13.7 K/UL (4.8-10.8) Red Blood Count 2.96 M/UL (4.20-5.40) Hemoglobin 7.1 G/DL (12.0-16.0) Hematocrit 24.4 % (37.0-47.0) Mean Corpuscular Volume 83 FL (80-99) Mean Corpuscular Hemoglobin 24.0 PG (27.0-31.0) Mean Corpuscular Hemoglobin Concent 29.1 G/DL (32.0-36.0) Red Cell Distribution Width 19.2 % (11.6-14.8) Platelet Count 227 K/UL (150-450) Mean Platelet Volume 8.0 FL (6.5-10.1) Neutrophils (%) (Auto) % (45.0-75.0) Lymphocytes (%) (Auto) % (20.0-45.0) Monocytes (%) (Auto) % (1.0-10.0) Eosinophils (%) (Auto) % (0.0-3.0) Basophils (%) (Auto) % (0.0-2.0) Differential Total Cells Counted 100 Neutrophils % (Manual) 86 % (45-75) Lymphocytes % (Manual) 7 % (20-45) Monocytes % (Manual) 7 % (1-10) Eosinophils % (Manual) 0 % (0-3) Basophils % (Manual) 0 % (0-2) Band Neutrophils 0 % (0-8) Platelet Estimate Adequate Platelet Morphology Normal Hypochromasia 2+ Anisocytosis 1+ Prothrombin Time 16.8 SEC (9.30-11.50) Prothromb Time International Ratio 1.6 (0.9-1.1) Activated Partial Thromboplast Time 34 SEC (23-33) Sodium Level 137 MMOL/L (136-145) Potassium Level 3.7 MMOL/L (3.5-5.1) Chloride Level 101 MMOL/L (98-107) Carbon Dioxide Level 25 MMOL/L (21-32) Anion Gap 11 mmol/L (5-15) Blood Urea Nitrogen 12 mg/dL (7-18) Creatinine 0.7 MG/DL (0.55-1.30) Estimat Glomerular Filtration Rate > 60 mL/min (>60) Glucose Level 130 MG/DL (74-106) Calcium Level 8.5 MG/DL (8.5-10.1) Magnesium Level 2.0 MG/DL (1.8-2.4) Total Bilirubin 0.7 MG/DL (0.2-1.0) Aspartate Amino Transf (AST/SGOT) 32 U/L (15-37) Alanine Aminotransferase (ALT/SGPT) 14 U/L (12-78) Alkaline Phosphatase 166 U/L (46-116) Troponin I 0.000 ng/mL (0.000-0.056) Pro-B-Type Natriuretic Peptide 2874 pg/mL (0-125) Total Protein 8.0 G/DL (6.4-8.2) Albumin 1.0 G/DL (3.4-5.0) Globulin 7.0 g/dL Albumin/Globulin Ratio 0.1 (1.0-2.7) Lactic Acid Level 2.10 mmol/L (0.4-2.0) 2.20 mmol/L (0.66-2.22) Urine Color Yellow Urine Appearance Cloudy Urine pH 6 (4.5-8.0) Urine Specific [place] 1.010 (1.005-1.035) Urine Protein 3+ (NEGATIVE) Urine Glucose (UA) Negative (NEGATIVE) Urine Ketones Negative (NEGATIVE) Urine Blood 5+ (NEGATIVE) Urine Nitrite Negative (NEGATIVE) Urine Bilirubin 1+ (NEGATIVE) Urine Ictotest Negative (NEGATIVE) Urine Urobilinogen 8 MG/DL (0.0-1.0) Urine Leukocyte Esterase Trace (NEGATIVE) Urine RBC 30-40 /HPF (0 - 2) Urine WBC 2-4 /HPF (0 - 2) Urine Squamous Epithelial Cells Few /LPF (NONE/OCC) Urine Bacteria Few /HPF (NONE) Test 05/13/20 03:55 05/14/20 04:00 White Blood Count 13.2 K/UL (4.8-10.8) Red Blood Count 3.51 M/UL (4.20-5.40) Hemoglobin 8.8 G/DL (12.0-16.0) Hematocrit 31.2 % (37.0-47.0) Mean Corpuscular Volume 89 FL (80-99) Mean Corpuscular Hemoglobin 25.2 PG (27.0-31.0) Mean Corpuscular Hemoglobin Concent 28.4 G/DL (32.0-36.0) Red Cell Distribution Width 18.5 % (11.6-14.8) Platelet Count 255 K/UL (150-450) Mean Platelet Volume 8.5 FL (6.5-10.1) Neutrophils (%) (Auto) % (45.0-75.0) Lymphocytes (%) (Auto) % (20.0-45.0) Monocytes (%) (Auto) % (1.0-10.0) Eosinophils (%) (Auto) % (0.0-3.0) Basophils (%) (Auto) % (0.0-2.0) Sodium Level 137 MMOL/L (136-145) Potassium Level 3.6 MMOL/L (3.5-5.1) Chloride Level 100 MMOL/L (98-107) Carbon Dioxide Level 27 MMOL/L (21-32) Anion Gap 10 mmol/L (5-15) Blood Urea Nitrogen 13 mg/dL (7-18) Creatinine 1.1 MG/DL (0.55-1.30) Estimat Glomerular Filtration Rate 59.8 mL/min (>60) Glucose Level 169 MG/DL (74-106) Lactic Acid Level 3.00 mmol/L (0.4-2.0) Calcium Level 8.2 MG/DL (8.5-10.1) Total Bilirubin 1.0 MG/DL (0.2-1.0) Aspartate Amino Transf (AST/SGOT) 26 U/L (15-37) Alanine Aminotransferase (ALT/SGPT) 7 U/L (12-78) Alkaline Phosphatase 160 U/L (46-116) Total Protein 7.8 G/DL (6.4-8.2) Albumin 1.0 G/DL (3.4-5.0) Globulin 6.8 g/dL Albumin/Globulin Ratio 0.1 (1.0-2.7) Height (Feet): 5 Height (Inches): 4.00 Weight (Pounds): 149 Objective Physical Exam Vitals reviewed, normal General: no apparent distress, alert, non-toxicL HEENT: hearing grossly normal, normal pharynx, no angioedema, normal voice Neck: full range of motion, supple/symm/no masses Respiratory: other - Mildly tachypneic Cardiovascular: regular rate, rhythm Gastrointestinal: non tender, soft Rectal: deferred Musculoskeletal: other - Left lower extremity diffuse swelling and tenderness to palpation 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
--- NOTE | 2020-05-14 07:15 | NUR ---
NURSE HAND-OFF REPORT: Important Events on Shift: patient on pain but covered with pain medications Patient Status:stable Diet:regular Pending Orders: n Pending Results/Labs:n Pending MD notification:n Latest Vital Signs: Temperature 97.6 , Pulse 92 , B/P 147 /95 , Respiratory Rate 17 , O2 SAT 100 , Room Air, O2 Flow Rate . Vital Sign Comment: n EKG Rhythm: Sinus Rhythm Rhythm change?: N MD Notified?: N - MD Response: Latest Florian Fall Score: 20 Fall Risk: Low Risk Safety Measures: Call light Within Reach, Bed Alarm Zone 2, Side Rails Side Rails x3, Bed position Low and Locked. Fall Precautions: Patient Fall Education Report given to NAOMY Marte.
--- NOTE | 2020-05-14 07:20 | NUR ---
NURSE NOTES: Received report from NAOMY MOJICA. Patient is sleeping and no signs of distress. On room air and saturations are 99-100%. Bed is on the lowest position, locked, and side rails are up. IV site is intact and no signs of swelling or infiltration. Patient will continue to be monitored all throughout the shift.
--- NOTE | 2020-05-14 07:35 | NUR ---
NURSE NOTES: Dr Lira at bedside,updated re pt's status.
[2020-05-14 08:54] LABS: HEMOGLOBIN 8.2 G/DL (12.0-16.0); MEAN CORPUSCULAR VOLUME 89 FL (80-99); PLATELET COUNT 281 K/UL (150-450); RED BLOOD COUNT 3.27 M/UL (4.20-5.40); RED CELL DISTRIBUTION WIDTH 18.6 % (11.6-14.8); WHITE BLOOD COUNT 13.8 K/UL (4.8-10.8)
[2020-05-14] MEDS: Pantoprazole Inj IVP SCH (09:13)
[2020-05-14] MEDS: Eliquis 5mg tablet ORAL SCH ×2 (09:13→18:06)
[2020-05-14 09:22] LABS: % IRON SATURATION 17 % (15-50); IRON 11 ug/dL (50-175); TOTAL IRON BINDING CAPACITY 64 ug/dL (250-450)
[2020-05-14 09:35] LABS: ALANINE AMINOTRANSFERASE 11 U/L (12-78); ALBUMIN 0.8 G/DL (3.4-5.0); ALBUMIN/GLOBULIN RATIO 0.1 (1.0-2.7); ALKALINE PHOSPHATASE 133 U/L (46-116); ANION GAP 9 mmol/L (5-15); ASPARTATE AMINO TRANSFERASE 25 U/L (15-37); BILIRUBIN,TOTAL 0.6 MG/DL (0.2-1.0); BLOOD UREA NITROGEN 11 mg/dL (7-18); CARBON DIOXIDE 24 MMOL/L (21-32); CHLORIDE 105 MMOL/L (98-107); CREATININE 0.6 MG/DL (0.55-1.30); FERRITIN 1584 NG/ML (8-388); POTASSIUM 3.3 MMOL/L (3.5-5.1); SODIUM 138 MMOL/L (136-145)
[2020-05-14] MEDS ORDERED: NS 275ml ONE (09:46)
[2020-05-14] MEDS ORDERED: Tubing IV Secondary IV ONE (09:46)
--- NOTE | 2020-05-14 14:00 | NUR ---
NURSE NOTES: pt's screaming of pain,called Dr Lira for a stronger pain medic,pt prefers Tylenol #3,call returned and order given.
--- NOTE | 2020-05-14 14:37 | General Progress Note ---
Subjective ROS Limited/Unobtainable: No Constitutional: Reports: malaise, weakness HEENT: Reports: no symptoms Cardiovascular: Reports: no symptoms Respiratory: Reports: no symptoms Gastrointestinal/Abdominal: Reports: no symptoms Genitourinary: Reports: no symptoms Neurologic/Psychiatric: Reports: no symptoms Endocrine: Reports: no symptoms Hematologic/Lymphatic: Reports: anemia Allergies: Coded Allergies: IBUPROFEN (Verified Allergy, Unknown, 05/12/20) All Systems: reviewed and negative except above Subjective no complaints. no bleeding. h/h slightly lower. on abx for possible pna Objective Last 24 Hour Vital Signs Date Time Temp Pulse Resp B/P (MAP) Pulse Ox O2 Delivery O2 Flow Rate FiO2 05/14/20 12:00 97.0 92 17 138/99 (112) 99 92 05/14/20 12:00 92 05/14/20 08:00 Room Air 05/14/20 08:00 96.6 92 21 140/90 (107) 100 05/14/20 07:47 89 05/14/20 04:00 Room Air 05/14/20 04:00 97.6 92 17 147/95 (112) 100 05/14/20 03:27 92 05/14/20 00:00 Room Air 05/14/20 00:00 97.7 91 16 150/92 (111) 96 05/13/20 23:30 95 05/13/20 20:00 Room Air 05/13/20 20:00 97.4 95 16 138/88 (105) 96 05/13/20 19:21 92 05/13/20 16:20 101 05/13/20 16:00 97.4 91 16 145/97 (113) 96 05/13/20 16:00 Room Air Intake and Output 05/13/20 05/14/20 19:00 07:00 Intake Total 1002.500 ml 1475.000 ml Balance 1002.500 ml 1475.000 ml Intake Oral 250 ml 250 ml IV Total 752.500 ml 1225.000 ml # Voids 2 # Bowel Movements 2 Laboratory Tests 05/14/20 04:00: Stool Occult Blood Negative 05/14/20 08:30: White Blood Count 13.8H, Red Blood Count 3.27L, Hemoglobin 8.2L, Hematocrit 29.0L, Mean Corpuscular Volume 89, Mean Corpuscular Hemoglobin 25.2L, Mean Corpuscular Hemoglobin Concent 28.5L, Red Cell Distribution Width 18.6H, Platelet Count 281, Mean Platelet Volume 7.8, Neutrophils (%) (Auto) , Lymphocytes (%) (Auto) , Monocytes (%) (Auto) , Eosinophils (%) (Auto) , Basophils (%) (Auto) , Differential Total Cells Counted 100, Neutrophils % (Manual) 88H, Lymphocytes % (Manual) 6L, Monocytes % (Manual) 6, Eosinophils % (Manual) 0, Basophils % (Manual) 0, Band Neutrophils 0, Platelet Estimate Adequate, Platelet Morphology Normal, Hypochromasia 1+, Anisocytosis 1+, Sodium Level 138, Potassium Level 3.3L, Chloride Level 105, Carbon Dioxide Level 24, Anion Gap 9, Blood Urea Nitrogen 11, Creatinine 0.6, Estimat Glomerular Filtration Rate > 60, Glucose Level 109H, Calcium Level 8.0L, Iron Level 11L, Total Iron Binding Capacity 64L, Percent Iron Saturation 17, Unsaturated Iron Binding 53L, Ferritin 1584H, Total Bilirubin 0.6, Aspartate Amino Transf ( AST/SGOT) 25, Alanine Aminotransferase (ALT/SGPT) 11L, Alkaline Phosphatase 133H , Total Protein 7.0, Albumin 0.8L, Globulin 6.2, Albumin/Globulin Ratio 0.1L 05/14/20 12:45: Vancomycin Level Trough 8.2 Height (Feet): 5 Height (Inches): 4.00 Weight (Pounds): 149 General Appearance: WD/WN, alert Neck: supple Cardiovascular: regular rhythm Respiratory/Chest: lungs clear Abdomen: normal bowel sounds, non tender, soft, no organomegaly Edema: mild edema 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
[2020-05-14] MEDS: Tylenol #3 tab (300mg/30mg) ORAL PRN (15:09)
--- NOTE | 2020-05-14 15:10 | NUR ---
NURSE NOTES: Given Tylenol #3 pain level on 10.will continue to monitor pt's pain.,
--- NOTE | 2020-05-14 16:30 | NUR ---
NURSE NOTES: family member at bedside,pt's daughter,informed re pt's transfer to [facility] [place].Pt resting in bed no further c/o pain presented.
--- NOTE | 2020-05-14 16:30 | NUR ---
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 97.0 HR 92 RR 17 B/P 140/90 RA 98% WBC 13.8 K 3.3 IS: VANCO IV ZOSYN IV ELIQUISE PO MED/SURG STATUS
--- NOTE | 2020-05-14 16:32 | NUR ---
OUTREACH PROFESSIONAL NOTES CLINICALS REVIEWED AND FAXED.
--- NOTE | 2020-05-14 18:00 | NUR ---
TRANSFER TO FLOOR: Patient transferred to [4E room 402-1 per bed awake,alert oriented in no pain or discomfort. Report given Arleen Jarvis RN. Belongings and medications given to receiving hvac sales engineer and or S/O informed of transfer.
[2020-05-14] MEDS: Vancomycin 1 GM in NS 275 ML IVPB SCH (18:08)
--- NOTE | 2020-05-14 18:39 | NUR ---
NURSE NOTES: Patient transferred from SDU; I received report from NAOMY Marte; patient awake, alert x4; on room air, no sign of distress and shortness of breath; no sing of chest pain IV Right AC Vanco running; patient bilateral lower extremity swollen; side rails up x2, breaks engaged, bed at lowest position, call light within reach; belongings counted and signed by transferring and receiving nurses; patient's own walker at the bed side; vitals taken upon receiving patient; will keep monitoring.
--- NOTE | 2020-05-14 19:20 | NUR ---
HAND-OFF: Report given to NAOMY Gupta. Patient resting; plan of care endorsed to incoming nurse;
[2020-05-15] VITALS (16 sets, daily range): BP systolic 119–146; BP diastolic 68–92
[2020-05-15] MEDS: Vancomycin 1 GM in NS 275 ML IVPB SCH ×3 (02:03→18:22)
[2020-05-15] MEDS: Tylenol #3 tab (300mg/30mg) ORAL PRN ×3 (03:19→23:28)
[2020-05-15] MEDS: Piperacillin/Tazobactam 3.375 GM in NS 110 ML IVPB SCH ×3 (05:29→22:02)
[2020-05-15] MEDS: HYDROcodone/Acetamin 10/325 tab ORAL PRN (06:27)
[2020-05-15] MEDS ORDERED: Phytonadione 10 mg/mL 1ml amp SUBQ SCH (06:30)
[2020-05-15] MEDS ORDERED: Sodium Bicarbonate 4% 2.4meq/5ml vial IV PRN (06:45)
[2020-05-15] MEDS ORDERED: Lidocaine 1% Plain 30 ml INJ PRN (06:45)
--- NOTE | 2020-05-15 06:46 | Hematology/Onc Progress Note ---
Assessment/Plan Assessment/Plan Labs: reviewed Imaging noted CTA 1. Right central, segmental and subsegmental pulmonary emboli. 2. Borderline right heart strain. 3. Scattered ground glass opacities versus mosaic attenuation of the lungs which may represent an infectious process versus air trapping from small airways disease. 05/13 duplex Impression: Positive for left femoral and common femoral deep venous thrombosis Emergency room physician already aware Assessment and recs # Pulmonary embolism, Right central, segmental and subsegmental pulmonary emboli. with right heart strain --> monitor h/h closely --> eliquis started but bleeding inhouse --> consider for ivc filter placement # DVT (deep venous thrombosis) left fem and com deep vein --> started on eliquis --> now with bleeding --> continue as above for as long as has malign # Endometrial cancer on KEYTRUDA --> to obtain records from office --> does not appear to have had chemo yet # Anemia of chronic disease --> anemia panel has been ordered --> r/o gi beed # Leukocytosis due to Pneumonia --> on abx per pcp --> wbc 14-->14 --> ABX zosyn and vanc # Lower leg pain on norco prn -> tylenol 4 started # Dvt ppx eliquis-->now stopped --> may require ivcf Appreciate consultation and franc RN Subjective HEENT: Denies: no symptoms, eye pain, blurred vision, tearing, double vision, ear pain, ear discharge, nose pain, nose congestion, throat pain, throat swelling, mouth pain, mouth swelling, other Cardiovascular: Denies: no symptoms, chest pain, edema, irregular heart rate, lightheadedness, palpitations, syncope, other Respiratory: Denies: no symptoms, cough, shortness of breath, SOB with excertion, SOB at rest, sputum, wheezing, other Genitourinary: Denies: no symptoms, burning, discharge, frequency, flank pain, hematuria, incontinence, pain, urgency, other Neurologic/Psychiatric: Denies: no symptoms, anxiety, depressed, emotional problems, headache, numbness, paresthesia, pre-existing deficit, seizure, tingling, tremors, weakness, other Endocrine: Denies: no symptoms, excessive sweating, flushing, intolerance to cold, intolerance to heat, increased hunger, increased thirst, increased urine, unexplained weight gain, unexplained weight loss, other Hematologic/Lymphatic: Denies: no symptoms, anemia, easy bleeding, easy bruising, adenopathy, other Allergies: Coded Allergies: IBUPROFEN (Verified Allergy, Unknown, 05/12/20) Subjective 05/14 meds noted, no bleeding, labs noted, no night sweats, with pain of leg, norco per Rn JM 05/15 with severe pain, bleeding overnight, eliquis stopped, consider ivcf Objective Objective Current Medications Medications (Trade) Dose Ordered Sig/Rhonda Route PRN Reason Start Time Stop Time Status Last Admin Dose Admin Acetaminophen (Tylenol) 500 mg Q4H PRN ORAL Mild Pain (Pain Scale 1-3) 05/12/20 20:45 06/11/20 20:44 05/14/20 13:33 Acetaminophen/ Codeine Phosphate (Tylenol #3) 1 tab Q4H PRN ORAL Severe Pain (Pain Scale 7-10) 05/14/20 15:00 05/21/20 14:59 05/15/20 03:19 Acetaminophen/ Hydrocodone Bitart ([place] 10/325) 1 tab Q4H PRN ORAL breakthrough pain 05/12/20 20:45 05/19/20 20:44 05/15/20 06:27 Bisacodyl (Dulcolax) 10 mg DAILYPRN PRN RECTAL Constipation 05/13/20 06:45 08/11/20 06:44 05/14/20 00:21 Ondansetron HCl (Zofran) 4 mg Q6H PRN IVP Nausea & Vomiting 05/12/20 20:45 06/11/20 20:44 Pantoprazole (Protonix) 40 mg DAILY IVP 05/12/20 22:00 06/11/20 21:59 05/14/20 09:13 Phytonadione (Vitamin K) 10 mg ONCE SUBQ 05/15/20 06:30 05/15/20 08:30 05/15/20 06:41 Piperacillin Sod/ Tazobactam Sod 3.375 gm/Sodium Chloride 110 ml @ 27.5 mls/hr EVERY 8 HOURS IVPB 05/13/20 06:00 05/18/20 05:59 05/15/20 05:29 Vancomycin HCl (Vanco pharmacy to dose) 1 ea DAILY PRN MISC Per rx protocol 05/12/20 20:45 06/11/20 20:44 Vancomycin HCl 1 gm/Sodium Chloride 275 ml @ 183.708 mls/hr Q8HR@0200,1000,1800 IVPB 05/14/20 18:00 05/19/20 17:59 05/15/20 02:03 Last 24 Hour Vital Signs Date Time Temp Pulse Resp B/P (MAP) Pulse Ox O2 Delivery O2 Flow Rate FiO2 05/15/20 03:49 98.1 05/15/20 00:00 98.1 95 18 145/85 (105) 95 05/14/20 23:43 97.8 05/14/20 21:08 Room Air 05/14/20 20:00 97.8 92 18 122/78 (93) 95 05/14/20 18:40 98.4 97 18 130/85 (100) 95 05/14/20 16:00 Room Air 05/14/20 16:00 97.9 91 18 162/99 (120) 99 05/14/20 16:00 93 05/14/20 12:00 97.0 92 17 138/99 (112) 99 92 05/14/20 12:00 92 05/14/20 12:00 Room Air 05/14/20 08:00 Room Air 05/14/20 08:00 96.6 92 21 140/90 (107) 100 05/14/20 07:47 89 05/14/20 04:00 Room Air 05/14/20 04:00 97.6 92 17 147/95 (112) 100 05/14/20 03:27 92 05/14/20 00:00 Room Air 05/14/20 00:00 97.7 91 16 150/92 (111) 96 05/13/20 23:30 95 05/13/20 20:00 Room Air 05/13/20 20:00 97.4 95 16 138/88 (105) 96 05/13/20 19:21 92 05/13/20 16:20 101 05/13/20 16:00 97.4 91 16 145/97 (113) 96 05/13/20 16:00 Room Air 05/13/20 12:00 Room Air 05/13/20 12:00 97.7 80 17 145/91 (109) 98 05/13/20 11:48 83 05/13/20 08:00 91 05/13/20 08:00 96.2 89 16 149/91 (110) 96 05/13/20 08:00 Room Air Intake and Output 05/14/20 05/15/20 19:00 07:00 Intake Total 930 ml 0 ml Output Total 350 ml Balance 580 ml 0 ml Intake Oral 480 ml IV Total 450 ml Other 0 ml Output Urine Total 350 ml # Voids 1 4 # Bowel Movements 4 1 Labs Test 05/12/20 15:55 05/12/20 18:00 05/12/20 18:15 05/12/20 20:00 White Blood Count 13.7 K/UL (4.8-10.8) Red Blood Count 2.96 M/UL (4.20-5.40) Hemoglobin 7.1 G/DL (12.0-16.0) Hematocrit 24.4 % (37.0-47.0) Mean Corpuscular Volume 83 FL (80-99) Mean Corpuscular Hemoglobin 24.0 PG (27.0-31.0) Mean Corpuscular Hemoglobin Concent 29.1 G/DL (32.0-36.0) Red Cell Distribution Width 19.2 % (11.6-14.8) Platelet Count 227 K/UL (150-450) Mean Platelet Volume 8.0 FL (6.5-10.1) Neutrophils (%) (Auto) % (45.0-75.0) Lymphocytes (%) (Auto) % (20.0-45.0) Monocytes (%) (Auto) % (1.0-10.0) Eosinophils (%) (Auto) % (0.0-3.0) Basophils (%) (Auto) % (0.0-2.0) Differential Total Cells Counted 100 Neutrophils % (Manual) 86 % (45-75) Lymphocytes % (Manual) 7 % (20-45) Monocytes % (Manual) 7 % (1-10) Eosinophils % (Manual) 0 % (0-3) Basophils % (Manual) 0 % (0-2) Band Neutrophils 0 % (0-8) Platelet Estimate Adequate Platelet Morphology Normal Hypochromasia 2+ Anisocytosis 1+ Prothrombin Time 16.8 SEC (9.30-11.50) Prothromb Time International Ratio 1.6 (0.9-1.1) Activated Partial Thromboplast Time 34 SEC (23-33) Sodium Level 137 MMOL/L (136-145) Potassium Level 3.7 MMOL/L (3.5-5.1) Chloride Level 101 MMOL/L (98-107) Carbon Dioxide Level 25 MMOL/L (21-32) Anion Gap 11 mmol/L (5-15) Blood Urea Nitrogen 12 mg/dL (7-18) Creatinine 0.7 MG/DL (0.55-1.30) Estimat Glomerular Filtration Rate > 60 mL/min (>60) Glucose Level 130 MG/DL (74-106) Calcium Level 8.5 MG/DL (8.5-10.1) Magnesium Level 2.0 MG/DL (1.8-2.4) Total Bilirubin 0.7 MG/DL (0.2-1.0) Aspartate Amino Transf (AST/SGOT) 32 U/L (15-37) Alanine Aminotransferase (ALT/SGPT) 14 U/L (12-78) Alkaline Phosphatase 166 U/L (46-116) Troponin I 0.000 ng/mL (0.000-0.056) Pro-B-Type Natriuretic Peptide 2874 pg/mL (0-125) Total Protein 8.0 G/DL (6.4-8.2) Albumin 1.0 G/DL (3.4-5.0) Globulin 7.0 g/dL Albumin/Globulin Ratio 0.1 (1.0-2.7) Lactic Acid Level 2.10 mmol/L (0.4-2.0) 2.20 mmol/L (0.66-2.22) Urine Color Yellow Urine Appearance Cloudy Urine pH 6 (4.5-8.0) Urine Specific [place] 1.010 (1.005-1.035) Urine Protein 3+ (NEGATIVE) Urine Glucose (UA) Negative (NEGATIVE) Urine Ketones Negative (NEGATIVE) Urine Blood 5+ (NEGATIVE) Urine Nitrite Negative (NEGATIVE) Urine Bilirubin 1+ (NEGATIVE) Urine Ictotest Negative (NEGATIVE) Urine Urobilinogen 8 MG/DL (0.0-1.0) Urine Leukocyte Esterase Trace (NEGATIVE) Urine RBC 30-40 /HPF (0 - 2) Urine WBC 2-4 /HPF (0 - 2) Urine Squamous Epithelial Cells Few /LPF (NONE/OCC) Urine Bacteria Few /HPF (NONE) Test 05/13/20 03:55 05/14/20 04:00 05/14/20 08:30 05/14/20 12:45 White Blood Count 13.2 K/UL (4.8-10.8) 13.8 K/UL (4.8-10.8) Red Blood Count 3.51 M/UL (4.20-5.40) 3.27 M/UL (4.20-5.40) Hemoglobin 8.8 G/DL (12.0-16.0) 8.2 G/DL (12.0-16.0) Hematocrit 31.2 % (37.0-47.0) 29.0 % (37.0-47.0) Mean Corpuscular Volume 89 FL (80-99) 89 FL (80-99) Mean Corpuscular Hemoglobin 25.2 PG (27.0-31.0) 25.2 PG (27.0-31.0) Mean Corpuscular Hemoglobin Concent 28.4 G/DL (32.0-36.0) 28.5 G/DL (32.0-36.0) Red Cell Distribution Width 18.5 % (11.6-14.8) 18.6 % (11.6-14.8) Platelet Count 255 K/UL (150-450) 281 K/UL (150-450) Mean Platelet Volume 8.5 FL (6.5-10.1) 7.8 FL (6.5-10.1) Neutrophils (%) (Auto) % (45.0-75.0) % (45.0-75.0) Lymphocytes (%) (Auto) % (20.0-45.0) % (20.0-45.0) Monocytes (%) (Auto) % (1.0-10.0) % (1.0-10.0) Eosinophils (%) (Auto) % (0.0-3.0) % (0.0-3.0) Basophils (%) (Auto) % (0.0-2.0) % (0.0-2.0) Sodium Level 137 MMOL/L (136-145) 138 MMOL/L (136-145) Potassium Level 3.6 MMOL/L (3.5-5.1) 3.3 MMOL/L (3.5-5.1) Chloride Level 100 MMOL/L (98-107) 105 MMOL/L (98-107) Carbon Dioxide Level 27 MMOL/L (21-32) 24 MMOL/L (21-32) Anion Gap 10 mmol/L (5-15) 9 mmol/L (5-15) Blood Urea Nitrogen 13 mg/dL (7-18) 11 mg/dL (7-18) Creatinine 1.1 MG/DL (0.55-1.30) 0.6 MG/DL (0.55-1.30) Estimat Glomerular Filtration Rate 59.8 mL/min (>60) > 60 mL/min (>60) Glucose Level 169 MG/DL (74-106) 109 MG/DL (74-106) Lactic Acid Level 3.00 mmol/L (0.4-2.0) Calcium Level 8.2 MG/DL (8.5-10.1) 8.0 MG/DL (8.5-10.1) Total Bilirubin 1.0 MG/DL (0.2-1.0) 0.6 MG/DL (0.2-1.0) Aspartate Amino Transf (AST/SGOT) 26 U/L (15-37) 25 U/L (15-37) Alanine Aminotransferase (ALT/SGPT) 7 U/L (12-78) 11 U/L (12-78) Alkaline Phosphatase 160 U/L (46-116) 133 U/L (46-116) Total Protein 7.8 G/DL (6.4-8.2) 7.0 G/DL (6.4-8.2) Albumin 1.0 G/DL (3.4-5.0) 0.8 G/DL (3.4-5.0) Globulin 6.8 g/dL 6.2 g/dL Albumin/Globulin Ratio 0.1 (1.0-2.7) 0.1 (1.0-2.7) Stool Occult Blood Negative (NEGATIVE) Differential Total Cells Counted 100 Neutrophils % (Manual) 88 % (45-75) Lymphocytes % (Manual) 6 % (20-45) Monocytes % (Manual) 6 % (1-10) Eosinophils % (Manual) 0 % (0-3) Basophils % (Manual) 0 % (0-2) Band Neutrophils 0 % (0-8) Platelet Estimate Adequate Platelet Morphology Normal Hypochromasia 1+ Anisocytosis 1+ Iron Level 11 ug/dL (50-175) Total Iron Binding Capacity 64 ug/dL (250-450) Percent Iron Saturation 17 % (15-50) Unsaturated Iron Binding 53 ug/dL (112-346) Ferritin 1584 NG/ML (8-388) Vancomycin Level Trough 8.2 ug/mL (5.0-12.0) Height (Feet): 5 Height (Inches): 4.00 Weight (Pounds): 149 Objective Physical Exam Vitals reviewed, normal General: no apparent distress, alert, non-toxicL HEENT: hearing grossly normal, normal pharynx, no angioedema, normal voice Neck: full range of motion, supple/symm/no masses Respiratory: other - Mildly tachypneic Cardiovascular: regular rate, rhythm Gastrointestinal: non tender, soft Rectal: deferred Musculoskeletal: other - Left lower extremity diffuse swelling and tenderness to palpation Neurologic: automatic line set up mechanic III-XII nml as tested Psychiatric: no suicidal/homicidal ideation Lymphatic: no adenopathy Armando Greenberg MD May 15, 2020 06:46
--- NOTE | 2020-05-15 07:10 | NUR ---
NURSE NOTES received patient resting comfortably in bed, patient awake, alert x4; no sign of distress, on room air, denies pain or discomfort at this time on going IV ATB on going right AC;sarah lower extremities swollen noted , both legs elevated on 2 pillow, patient noted have vaginal bleeding and instructed on bedrest due to positive DVTon left femur ,and result of CT chest patient verbalized understanding, 4 P's, in progress, on fall precaution observed and maintained, both side rails up x2, breaks engaged, bed at lowest position, call light within reach, will continue to monitor patient condition michelle ruggiero
--- NOTE | 2020-05-15 07:32 | NUR ---
HAND-OFF: Report given to NAOMY Combs. Endorsed Dr Greenberg's plan of care.
[2020-05-15] MEDS: Pantoprazole Inj IVP SCH (08:37)
[2020-05-15 08:41] LABS: HEMATOCRIT 26.9 % (37.0-47.0); HEMOGLOBIN 8.1 G/DL (12.0-16.0); MEAN CORPUSCULAR VOLUME 83 FL (80-99); PLATELET COUNT 323 K/UL (150-450); RED BLOOD COUNT 3.25 M/UL (4.20-5.40); RED CELL DISTRIBUTION WIDTH 19.1 % (11.6-14.8); WHITE BLOOD COUNT 13.5 K/UL (4.8-10.8)
[2020-05-15 08:57] LABS: ANION GAP 12 mmol/L (5-15); BLOOD UREA NITROGEN 10 mg/dL (7-18); CALCIUM 7.9 MG/DL (8.5-10.1); CARBON DIOXIDE 23 MMOL/L (21-32); CHLORIDE 105 MMOL/L (98-107); CREATININE 0.8 MG/DL (0.55-1.30); POTASSIUM 3.1 MMOL/L (3.5-5.1); SODIUM 140 MMOL/L (136-145)
--- NOTE | 2020-05-15 10:30 | NUR ---
NURSE NOTES: Post fall notifications made to MD Lira who gave new orders. Patient's daughter Briana was also notified of patient fall.
--- NOTE | 2020-05-15 10:39 | Diagnostic Imaging Report ---
EXAM: CT Head Without Intravenous Contrast CLINICAL HISTORY: FALL TECHNIQUE: Axial computed tomography images of the head/brain without intravenous contrast. CTDI is 53.40 mGy and DLP is 1045.5 mGy-cm. One or more of the following dose reduction techniques were used: automated exposure control, adjustment of the mA and/or kV according to patient size, use of iterative reconstruction technique. COMPARISON: No relevant prior studies available. FINDINGS: Trace, acute subarachnoid hemorrhage within the high right frontal lobe sulci at the vertex (series 7 image 8). Mild, chronic appearing subdural collection along the right parietal convexity (deep to the area of trauma), measuring approximately 5 mm in maximal thickness. No definite acute hyperdense blood within the subdural collection. Right parietal scalp laceration/hematoma. No midline shift. No acute infarct. Age-related cerebral atrophy. Periventricular and subcortical white matter changes, consistent with chronic microangiopathy. IMPRESSION: Trace, acute subarachnoid hemorrhage within the high right frontal lobe sulci at the vertex (series 7 image 8). Mild, chronic appearing subdural collection along the right parietal convexity (deep to the area of trauma), measuring approximately 5 mm in maximal thickness. No definite acute hyperdense blood within the subdural collection. Follow-up head CT recommended to reevaluate these two areas of hemorrhage.
--- NOTE | 2020-05-15 10:50 | NUR ---
NURSE NOTES: Received patient transferred from from [facility] under the care of Dr. Lira for the admitting dx. of L leg pain secondary to DVT. Patient is alert and oriented x 3-4 verbally responsive with clear speech. Patient denies pain at this time. Bed set on lowest position with alarm and brakes engaged. Patient safety protocols observed and maintained at all times. Will continue to monitor.
--- NOTE | 2020-05-15 10:50 | NUR ---
nurse notes CT head done, backed to room ,patient awake, alert, oriented x3-4 ,no sign of distress,with clear speech, with order transfer to tele, transferred to telemetry, with all belongings given endorsed to Omar RN receiving nurse accordingly michelle ruggiero
--- NOTE | 2020-05-15 11:06 | NUR ---
NURSE NOTES: MD Lira notified of CT scan result. No new orders. Notified charge nurse Lyndsey on telemetry.
--- NOTE | 2020-05-15 12:05 | NUR ---
DEALMAKER NOTE CALL MADE TO ARTI HERNANDEZ AT [facility] [phone]. CM INFORMED DAVID OF CT RESULT AND ORDER TO TRANSFER PATIENT FOR NEUROSURGEON EVAL. PER DAVID, HE WILL CALL BACK WITH TRANSFER INFO. ADVISED THIS CM TO SET AMBULANCE TRANSPORT ON WILL CALL.
--- NOTE | 2020-05-15 12:54 | NUR ---
MEDICAL EDUCATION COORDINATOR NOTE CALL RECEIVED FROM DAVID @ [facility] [phone]. PER DAVID, PATIENT TO BE REFERRED TO [facility] P [phone] O [phone] - [facility] [phone] Addendum: 05/15/20 at 1329 by LEANNE FRANCE LVN S/W [facility] AT [facility]. CONFIRMED RECEIPT OF REFERRAL INFORMED HOUSE SUP THAT PER [facility], DR ORTIZ WILL BE THE ACCEPTING MD. PER SAMI, SHE WILL CALL BACK WITH UPDATE ON BED AVAILABILITY.
--- NOTE | 2020-05-15 12:55 | General Progress Note ---
Subjective ROS Limited/Unobtainable: No Constitutional: Reports: malaise, weakness HEENT: Reports: no symptoms Cardiovascular: Reports: no symptoms Respiratory: Reports: no symptoms Gastrointestinal/Abdominal: Reports: no symptoms Genitourinary: Reports: no symptoms Neurologic/Psychiatric: Reports: no symptoms Endocrine: Reports: no symptoms Hematologic/Lymphatic: Reports: no symptoms Allergies: Coded Allergies: IBUPROFEN (Verified Allergy, Unknown, 05/12/20) All Systems: reviewed and negative except above Subjective mechanical fall. got out of bed unassisted. Head ct with small amount SAH. Objective Last 24 Hour Vital Signs Date Time Temp Pulse Resp B/P (MAP) Pulse Ox O2 Delivery O2 Flow Rate FiO2 05/15/20 10:40 100.2 89 20 145/92 (109) 98 05/15/20 10:30 99.2 98 20 141/88 (105) 94 05/15/20 10:30 99.2 94 05/15/20 10:05 97.8 94 05/15/20 10:00 97.8 101 19 138/68 (91) 94 05/15/20 09:49 104 18 94 05/15/20 08:35 Room Air 05/15/20 08:00 97.5 98 19 119/77 (91) 95 05/15/20 06:57 98.1 05/15/20 03:49 98.1 05/15/20 00:00 98.1 95 18 145/85 (105) 95 05/14/20 23:43 97.8 05/14/20 21:08 Room Air 05/14/20 20:00 97.8 92 18 122/78 (93) 95 05/14/20 18:40 98.4 97 18 130/85 (100) 95 05/14/20 16:00 Room Air 05/14/20 16:00 97.9 91 18 162/99 (120) 99 05/14/20 16:00 93 Intake and Output 05/14/20 05/15/20 19:00 07:00 Intake Total 930 ml 0 ml Output Total 350 ml Balance 580 ml 0 ml Intake Oral 480 ml IV Total 450 ml Other 0 ml Output Urine Total 350 ml # Voids 1 4 # Bowel Movements 4 1 Laboratory Tests 05/15/20 08:15: White Blood Count 13.5H, Red Blood Count 3.25L, Hemoglobin 8.1L, Hematocrit 26.9L, Mean Corpuscular Volume 83, Mean Corpuscular Hemoglobin 24.9L, Mean Corpuscular Hemoglobin Concent 30.1L, Red Cell Distribution Width 19.1H, Platelet Count 323, Mean Platelet Volume 7.4, Neutrophils (%) (Auto) , Lymphocytes (%) (Auto) , Monocytes (%) (Auto) , Eosinophils (%) (Auto) , Basophils (%) (Auto) , Differential Total Cells Counted 100, Neutrophils % (Manual) 83H, Lymphocytes % (Manual) 12L, Monocytes % (Manual) 5, Eosinophils % (Manual) 0, Basophils % (Manual) 0, Band Neutrophils 0, Platelet Estimate Adequate, Platelet Morphology Normal, Polychromasia 1+, Hypochromasia 1+, Anisocytosis 2+, Sodium Level 140, Potassium Level 3.1L, Chloride Level 105, Carbon Dioxide Level 23, Anion Gap 12, Blood Urea Nitrogen 10, Creatinine 0.8, Estimat Glomerular Filtration Rate > 60, Glucose Level 136H, Calcium Level 7.9L Height (Feet): 5 Height (Inches): 4.00 Weight (Pounds): 149 General Appearance: WD/WN Neck: supple Cardiovascular: regular rhythm Respiratory/Chest: lungs clear Abdomen: normal bowel sounds, non tender, soft, no organomegaly Edema: no edema noted Arm (L), no edema noted Arm (R); 1+ Leg (L), 1+ Leg (R) Neurologic: planer operator II-XII grossly normal Assessment/Plan Problem List: (1) Pulmonary embolism ICD Codes: I26.99 - Other pulmonary embolism without acute cor pulmonale SNOMED: 38780067 (2) Pneumonia ICD Codes: J18.9 - Pneumonia, unspecified organism SNOMED: 500693681 (3) DVT (deep venous thrombosis) ICD Codes: I82.409 - Acute embolism and thrombosis of unspecified deep veins of unspecified lower extremity SNOMED: 651427243 Status: stable Assessment/Plan: off eliquis- dcd by heme will need ivc filter transfuse to hospital with neurosurgery services neuro checks Pritesh Lira MD May 15, 2020 12:55
[2020-05-15] MEDS ORDERED: VANCOMYCIN1.5 GM/300 IV (14:38)
[2020-05-15] MEDS ORDERED: ZOSYN 3.373.375 GM/1 IVPB (14:39)
[2020-05-15] MEDS ORDERED: HYDROCODON-ACE1 EA13 ORAL (14:41)
[2020-05-15] MEDS ORDERED: PROTONIX IV40 MG IV (14:43)
[2020-05-15] MEDS ORDERED: ZOFRAN 4 MG4 MG/2 ML IV (14:43)
--- NOTE | 2020-05-15 15:00 | NUR ---
NURSE NOTES: Continuing with patient neuro check. Patient VS WNL. Able to make needs known with clear speech. Assissted to bedside comode. Able to weight bear with assistance. Will continue to monitor.
--- NOTE | 2020-05-15 16:50 | NUR ---
INSURANCE CLINICALS/REVIEW FAXED TO [facility] Tele [phone]
--- NOTE | 2020-05-15 17:00 | NUR ---
NURSE NOTES: Patient asleep but easily arousable. Continues to be oriented. No acute sign of distress noted. Will continue to monitor.
--- NOTE | 2020-05-15 17:08 | NUR ---
HANDYPERSON NOTE MULTIPLE FOLLOW UP CALLS MADE TO [facility] WITH NO ANSWER. LEFT REQUESTING CALL BACK. S/W DAVID AT [facility]. PER DAVID, REFER PATIENT TO [facility]. PATIENT CAN TRANSFER TO FACILITY WITH FIRST AVAILABLE BED.
--- NOTE | 2020-05-15 17:23 | NUR ---
LINE PAINTING MACHINE OPERATOR NOTE PATIENT HAS BEEN REFERRED FOR HIGHER LEVEL OF CARE TO [facility] P [phone] F [phone] S/W LO AT [facility]. PATIENT WILL BE REFERRED TO [facility] FOR NEUROSURGEON. ALL REQUESTED CLINICALS FAXED TO ABOVE NUMBER. TELE UNIT CONTACT INFO PROVIDED FOR FOLLOW UPS.
--- NOTE | 2020-05-15 19:15 | NUR ---
NURSE HAND-OFF REPORT: Important Events on Shift:Transferred from Patient Status: Stable Diet: NPO Pending Orders: Pending Results/Labs: Pending MD notification: Latest Vital Signs: Temperature 96.7 , Pulse 94 , B/P 127 /75 , Respiratory Rate 18 , O2 SAT 98 , Room Air, O2 Flow Rate . Vital Sign Comment: EKG Rhythm: Sinus Rhythm Rhythm change?: N MD Notified?: N - MD Response: Latest Florian Fall Score: 45 Fall Risk: High Risk Safety Measures: Call light Within Reach, Bed Alarm Zone 2, Side Rails Side Rails x3, Bed position Low and Locked. Fall Precautions: Yellow Socks Patient Fall Education Report given to NAOMY Dawn.
--- NOTE | 2020-05-15 20:11 | NUR ---
NURSE NOTES: Received patient report from NAOMY Nelson. Patient shows no signs of distress or pain at the time. Patient is AO x3 awake and able to make needs known. Patient is on room air and shows no signs of respiratory distress. IV is intact and patent. There are no signs of erythema, infiltration, or bleeding. IV running NS @ 75cc/hr. Patient states she feels dizzy, placed on purewick. Bed is in the lowest position, call light is within reach, side rails up x3, and bed alarm on. Will continue to monitor.
--- NOTE | 2020-05-15 22:32 | NUR ---
NURSE NOTES: At approximately 2100 I spoke to Dea from [facility]. Patient is going to room 4402 bed 1. [facility] ambulance was called and are on their way. I called daughter Briana Altamirano to inform her of transfer.
--- NOTE | 2020-05-16 00:30 | NUR ---
NURSE HAND-OFF REPORT: Important Events on Shift:[Transferred to [facility]] Patient Status: [Full code] Diet: [NPO] Pending Orders: [] Pending Results/Labs:[] Pending MD notification:[] Latest Vital Signs: Temperature 98.8 , Pulse 95 , B/P 120 /72 , Respiratory Rate 16 , O2 SAT 95 , Room Air, O2 Flow Rate . Vital Sign Comment: [] EKG Rhythm: Sinus Rhythm Rhythm change?: N MD Notified?: N - MD Response: Latest Florian Fall Score: 35 Fall Risk: Medium Risk Safety Measures: Call light Within Reach, Bed Alarm Zone 2, Side Rails Side Rails x3, Bed position Low and Locked. Fall Precautions: Yellow Socks Patient Fall Education Report given to [Kemi RN at [facility]].
--- NOTE | 2020-05-18 14:21 | Discharge Summary ---
Discharge Summary Discharge Summary _ DATE OF ADMISSION: 05/12/2020 DATE OF DISCHARGE: 05/16/2020 DISCHARGED BY: Dr. Pritesh Lira CONSULTANTS: Dr. Armando Greenberg BRIEF HOSPITAL COURSE: Patient is a 69-year-old female. She has history of uterine cancer, diabetes, hypertension, who presented with complaints of lower extremity edema. Upon evaluation in the emergency room, she was diagnosed with DVT at the left femoral and common femoral vein. A CT pulmonary angio also showed small pulmonary embolism and scattered groundglass opacities. Rapid Covid test was negative. She was admitted for further evaluation and care. She was admitted to monitored floor. She was started on anticoagulation with Eliquis. WBC was elevated to 13. She was given Zosyn and vancomycin. Blood culture did not isolate any growth. Patient had a mechanical fall. Head CT showed trace, acute subarachnoid hemorrhage within the high right frontal lobe sulci at the vertex. There was also a finding of mild, chronic appearing subdural collection along the right parietal convexity measuring approximately 5 mm in maximal thickness. No acute hyperdense blood within the subdural collection. Anticoagulation was stopped. Patient would eventually need IVC filter. She was given neurochecks. Patient was eventually transferred to higher level of care. FINAL DIAGNOSES: Acute left leg DVT Pneumonia Pulmonary embolism Endometrial cancer Anemia of chronic disease Subarachnoid hemorrhage DISPOSITION: Patient was transferred to [facility]. DISCHARGE MEDICATIONS: Refer to Discharge Medication List. I have been assigned to complete a discharge summary on this account, I was not involved with the patient's management.--KASHIF Marroquin Jacqueline Robles NP May 18, 2020 14:21
[2020-05-20] MEDS ORDERED: Eliquis 5mg tablet ORAL SCH (09:00)
--- NOTE | 2020-05-20 13:51 | NUR ---
INSURANCE DC SUMMARY FAXED TO [facility] [phone]
== END 2020-05-16 01:47 | disposition short-term general hospital (02) | DRG 175 ==
LOC: EDBEDREQ 17:03 → EMR 17:18 → EDBEDREQSVC 18:40 → ICU 19:45 → EDBEDREQ 20:23 → 2W 22:13 → 4E 05-14 18:15 → 2E 05-15 10:44
PROC: 30233N1 Transfusion of Nonautologous Red Blood Cells into Peripheral Vein, Percutaneous Approach (ICD-10-PCS; principal; 2020-05-12)
DX: I26.99 Other pulmonary embolism without acute cor pulmonale (principal); J18.9 Pneumonia, unspecified organism; S06.6X9A Traumatic subarachnoid hemorrhage with loss of consciousness of unspecified duration, initial encounter; I82.412 Acute embolism and thrombosis of left femoral vein; C54.1 Malignant neoplasm of endometrium; Z88.6 Allergy status to analgesic agent; Z85.42 Personal history of malignant neoplasm of other parts of uterus; E11.9 Type 2 diabetes mellitus without complications; I10 Essential (primary) hypertension; D63.8 Anemia in other chronic diseases classified elsewhere; W06.XXXA Fall from bed, initial encounter; Y92.230 Patient room in hospital as the place of occurrence of the external cause
CPT/HCPCS: 36415; 70450; 71045; 71275; 80048; 80053; 80202; 81003; 82270; 82728; 83540; 83550; 83605; 83735; 83880; 84484; 85007; 85025; 85610; 85730; 86850; 86900; 86901; 86920; 87040; 93005; 93970; 96361; 96365; 96368; 96372; 96375; 99291; J7030; U0002